=== PATIENT | male | born 1980 | race Caucasian/White ===

== ENCOUNTER 2019-05-28 01:54 | Emergency (ER) | payer MEDICAID ==
[~2019-05-28] VITALS: Ht 172.7 cm; Wt 72.7 kg
[2019-05-28 02:00] VITALS: BP 136/92; Ht 172.7 cm; Wt 72.7 kg
[2019-05-28] MEDS ORDERED: AMOXICILLIN500 M1 PO (02:41)
== END 2019-05-28 02:50 | disposition home or self-care (01) ==
LOC: D.ER 01:54
DX: S01.01XA Laceration without foreign body of scalp, initial encounter (principal); W18.09XA Striking against other object with subsequent fall, initial encounter; Y93.89 Activity, other specified; Y92.89 Other specified places as the place of occurrence of the external cause; K04.7 Periapical abscess without sinus